=== PATIENT | female | born 1940 | race Caucasian/White ===

== ENCOUNTER 2018-09-23 19:32 | Inpatient (IN) | payer MEDICARE, OTHER ==
[2018-09-23 19:43] LABS: ADD MAN DIFF? NO
[2018-09-23 19:49] LABS: BASOPHILS % 0.2 % (0.0-2.0); EOSINOPHILS # 0.1 10^3/ul (0.0-0.5); EOSINOPHILS % 1.1 % (0.0-7.0); HEMATOCRIT 44.1 % (37.0-47.0); HEMOGLOBIN 14.3 g/dl (12.0-16.0); LYMPHOCYTES # 2.4 10^3/ul (0.8-2.9); LYMPHOCYTES % 25.5 % (15.0-51.0); MEAN CORPUSCULAR HGB CONC 32.4 g/dl (32.0-37.0); MEAN CORPUSCULAR VOLUME 92.6 fl (82.0-101.0); MONOCYTE # 0.5 10^3/ul (0.3-0.9); MONOCYTES % 5.2 % (0.0-11.0); NEUTROPHIL # 6.4 10^3/ul (1.6-7.5); NEUTROPHILS % 67.5 % (39.0-77.0); PLATELET COUNT 223 10^3/UL (140-415); RED BLOOD COUNT 4.76 10^6/ul (4.20-5.40); RED CELL DISTRIBUTION WIDTH 12.4 % (11.5-14.5)
[2018-09-23 19:49] LABS: WHITE BLOOD COUNT 9.4 10^3/ul (4.8-10.8)
[2018-09-23] MEDS: SODIUM CHLORIDE 0.9% 1L BAG IV* (19:56)
[2018-09-23] MEDS: CEFEPIME 2GM/50 ML (PMX) 50 ML IVPB (19:57)
[2018-09-23] MEDS: ALBUTEROL 0.5% (NEB) 2.5 MG/0.5 ML AMP INH (20:09)
[2018-09-23] MEDS: IPRATROPIUM (NEB) 0.5 MG/2.5 ML AMP INH (20:09)
[2018-09-23 20:12] LABS: ALANINE AMINOTRANSFERASE 15 IU/L (13-69); ALBUMIN 3.9 g/dl (3.3-4.9); ALBUMIN/GLOBULIN RATIO 1.11; ALKALINE PHOSPHATASE 62 IU/L (42-121); ANION GAP 9 (5-13); ASPARTATE AMINO TRANSFERASE 18 IU/L (15-46); BILIRUBIN,INDIRECT 0.5 mg/dl (0-1.1); BILIRUBIN,TOTAL 0.5 mg/dl (0.2-1.3); BLOOD UREA NITROGEN 17 mg/dl (7-20); CALCIUM 9.2 mg/dl (8.4-10.2); CARBON DIOXIDE 31 mmol/L (21-31); CHLORIDE 101 mmol/L (97-110); CREATININE 0.19 mg/dl (0.44-1.00); GLUCOSE 130 mg/dl (70-220); INR 1.04; PARTIAL THROMBOPLASTIN TIME 29.4 Sec (23.0-35.0); POTASSIUM 4.8 mmol/L (3.5-5.1); PROTIME 13.7 Sec (11.9-14.9); PT RATIO 1.1; SODIUM 141 mmol/L (135-144); TOTAL PROTEIN 7.4 g/dl (6.1-8.1)
[2018-09-23 20:23] LABS: TROPONIN-I < 0.012 ng/ml (0.000-0.120)
[2018-09-23] MEDS: VANCOMYCIN 1 GM (PMX) 250 ML IVPB (21:15)
[2018-09-23] MEDS: IODIXANOL LOCM 100 ML BTL (21:36)
[2018-09-23 22:45] LABS: D-DIMER 1245.48 ng/ml (<460)
[2018-09-23] MEDS: ENOXAPARIN 80 MG/0.8 ML SYG SC (23:00)
[2018-09-23] MEDS ORDERED: ONDANSETRON 4 MG INJ IV (23:00)
[2018-09-23] MEDS ORDERED: ACETAMINOPHEN 325 MG TAB PO (23:00)
[2018-09-24 00:40] LABS: LACTIC ACID 1.8 mmol/L (0.5-2.0)
[2018-09-24] MEDS ORDERED: ONDANSETRON 4 MG INJ IV (01:00)
[2018-09-24] MEDS ORDERED: IPRATROPIUM (NEB) 0.5 MG/2.5 ML AMP NEB (01:00)
[2018-09-24] MEDS ORDERED: NACL 0.9% 3 ML SYG IV (01:00)
[2018-09-24] MEDS ORDERED: LEVALBUTEROL (NEB) 0.63 MG/3 ML AMP HHN (01:00)
[2018-09-24] MEDS ORDERED: ACETAMINOPHEN 325 MG TAB PO (01:00)
[2018-09-24 01:28] LABS: CREATINE KINASE 30 IU/L (23-200)
[2018-09-24 01:38] LABS: CK INDEX 10.4; CK-MB 3.11 ng/ml (0.0-2.4)
[2018-09-24 01:41] LABS: TROPONIN-I < 0.012 ng/ml (0.000-0.120)
[2018-09-24] MEDS: SOD CHLORIDE 0.9% 100 ML (02:16)
[2018-09-24] MEDS: ACETAMINOPHEN 325 MG TAB PO (02:17)
[2018-09-24] MEDS: GENTAMICIN 0.3% 5 ML OPH BOTH EYES ×6 (02:19→22:33)
[2018-09-24] MEDS: CLINDAMYCIN 900 MG/D5W (PMX) 50 ML IVPB ×2 (02:41→05:13)
[2018-09-24 07:00] LABS: ADD MAN DIFF? NO
[2018-09-24 07:02] LABS: BASOPHILS % 0.3 % (0.0-2.0); EOSINOPHILS # 0.1 10^3/ul (0.0-0.5); EOSINOPHILS % 0.8 % (0.0-7.0); HEMATOCRIT 35.8 % (37.0-47.0); HEMOGLOBIN 11.5 g/dl (12.0-16.0); LYMPHOCYTES # 2.2 10^3/ul (0.8-2.9); LYMPHOCYTES % 23.8 % (15.0-51.0); MEAN CORPUSCULAR HEMOGLOBIN 30.3 pg (29.0-33.0); MEAN CORPUSCULAR HGB CONC 32.1 g/dl (32.0-37.0); MEAN CORPUSCULAR VOLUME 94.5 fl (82.0-101.0); MEAN PLATELET VOLUME 11.4 fl (7.4-10.4); MONOCYTE # 0.8 10^3/ul (0.3-0.9); MONOCYTES % 8.6 % (0.0-11.0); NEUTROPHIL # 6.1 10^3/ul (1.6-7.5); NEUTROPHILS % 66.2 % (39.0-77.0); PLATELET COUNT 154 10^3/UL (140-415); RED BLOOD COUNT 3.79 10^6/ul (4.20-5.40); RED CELL DISTRIBUTION WIDTH 12.7 % (11.5-14.5)
[2018-09-24 07:02] LABS: WHITE BLOOD COUNT 9.2 10^3/ul (4.8-10.8)
[2018-09-24 07:53] LABS: AADO2 Arterial 29.5 mmHg (7.0-24.0); Allen Test ACCEPTAB; Arterial Base Excess 2.7 mmol/L (-3.0-3); Arterial Blood Gas Oxygen Sat 97.1 mmHG (95.0-100.0); Arterial COHb 0.2 % (0.0-3.0); Arterial Fraction of Oxyhgb 96.6 % (93.0-99.0); Arterial HCO3 29.6 mmol/L (22.0-26.0); Arterial MetHb 0.3 % (0.0-1.5); Arterial pCO2 55.7 mmhg (35-45); MODE NASAL CANNULA; Site Left Radial
[2018-09-24] MEDS: POTASSIUM CHLORIDE (SR) 20 MEQ TAB PO (08:08)
[2018-09-24] MEDS: METOPROLOL 25 MG TAB PO (08:08)
[2018-09-24] MEDS: RISPERIDONE 0.25 MG TAB PO ×2 (08:08→22:29)
[2018-09-24] MEDS: CHOLECALCIFEROL 1,000 UNIT TAB PO (08:09)
[2018-09-24] MEDS: HEPARIN 5,000 UNIT/1 ML VIAL SC ×2 (08:13→22:36)
[2018-09-24] MEDS: NALOXONE (0.4 MG/ML) INJ IV (08:54)
[2018-09-24 09:02] LABS: ALANINE AMINOTRANSFERASE 19 IU/L (13-69); ALBUMIN 3.2 g/dl (3.3-4.9); ALBUMIN/GLOBULIN RATIO 1.06; ALKALINE PHOSPHATASE 66 IU/L (42-121); ANION GAP 7 (5-13); ASPARTATE AMINO TRANSFERASE 13 IU/L (15-46); BILIRUBIN,INDIRECT 0.7 mg/dl (0-1.1); BILIRUBIN,TOTAL 0.7 mg/dl (0.2-1.3); BLOOD UREA NITROGEN 10 mg/dl (7-20); CALCIUM 8.4 mg/dl (8.4-10.2); CARBON DIOXIDE 29 mmol/L (21-31); CHLORIDE 106 mmol/L (97-110); CHOL/HDL RATIO 3.8 RATIO; CHOLESTEROL 141 mg/dl (100-200); CREATININE < 0.15 mg/dl (0.44-1.00); GLUCOSE 91 mg/dl (70-220); HDL CHOLESTEROL 37 mg/dl (33-92); LDL CHOLESTEROL,CALCULATED 82 mg/dl; MAGNESIUM 1.8 mg/dl (1.7-2.5); POTASSIUM 3.6 mmol/L (3.5-5.1); SODIUM 142 mmol/L (135-144); TOTAL PROTEIN 6.2 g/dl (6.1-8.1); TRIGLYCERIDES 112 mg/dl (0-149)
[2018-09-24 09:25] LABS: TROPONIN-I < 0.012 ng/ml (0.000-0.120)
[2018-09-24 09:28] LABS: CREATINE KINASE 25 IU/L (23-200)
[2018-09-24] MEDS: traZODone 50 MG TAB PO (22:28)
[2018-09-24] MEDS: ATORVASTATIN 20 MG TAB PO (22:29)
[2018-09-25] MEDS: GENTAMICIN 0.3% 5 ML OPH BOTH EYES ×5 (00:07→17:23)
[2018-09-25 06:53] LABS: ADD MAN DIFF? NO
[2018-09-25 07:01] LABS: BASOPHILS % 0.5 % (0.0-2.0); EOSINOPHILS # 0.1 10^3/ul (0.0-0.5); EOSINOPHILS % 1.6 % (0.0-7.0); HEMATOCRIT 38.4 % (37.0-47.0); HEMOGLOBIN 12.3 g/dl (12.0-16.0); LYMPHOCYTES # 1.3 10^3/ul (0.8-2.9); LYMPHOCYTES % 23.7 % (15.0-51.0); MEAN CORPUSCULAR HEMOGLOBIN 30.3 pg (29.0-33.0); MEAN CORPUSCULAR VOLUME 94.6 fl (82.0-101.0); MEAN PLATELET VOLUME 11.3 fl (7.4-10.4); MONOCYTE # 0.4 10^3/ul (0.3-0.9); MONOCYTES % 7.9 % (0.0-11.0); NEUTROPHIL # 3.7 10^3/ul (1.6-7.5); NEUTROPHILS % 65.9 % (39.0-77.0); PLATELET COUNT 158 10^3/UL (140-415); RED BLOOD COUNT 4.06 10^6/ul (4.20-5.40); RED CELL DISTRIBUTION WIDTH 12.4 % (11.5-14.5)
[2018-09-25 07:01] LABS: WHITE BLOOD COUNT 5.6 10^3/ul (4.8-10.8)
[2018-09-25 07:19] LABS: ANION GAP 5 (5-13); BLOOD UREA NITROGEN 9 mg/dl (7-20); CALCIUM 8.5 mg/dl (8.4-10.2); CARBON DIOXIDE 31 mmol/L (21-31); CHLORIDE 102 mmol/L (97-110); GLUCOSE 74 mg/dl (70-220); MAGNESIUM 1.8 mg/dl (1.7-2.5); PHOSPHORUS 3.9 mg/dl (2.5-4.9); POTASSIUM 3.5 mmol/L (3.5-5.1); SODIUM 138 mmol/L (135-144)
[2018-09-25 07:23] LABS: CREATININE < 0.15 mg/dl (0.44-1.00)
[2018-09-25] MEDS: POTASSIUM CHLORIDE (SR) 20 MEQ TAB PO (08:36)
[2018-09-25] MEDS: METOPROLOL 25 MG TAB PO (08:36)
[2018-09-25] MEDS: RISPERIDONE 0.25 MG TAB PO (08:37)
[2018-09-25] MEDS: CHOLECALCIFEROL 1,000 UNIT TAB PO (08:37)
[2018-09-25] MEDS: HEPARIN 5,000 UNIT/1 ML VIAL SC (08:45)
== END 2018-09-25 18:02 | DRG 189 ==
LOC: TEL 22:48 → E/R 19:32
DX: J96.01 Acute respiratory failure with hypoxia (principal); G82.50 Quadriplegia, unspecified; R65.10 Systemic inflammatory response syndrome (SIRS) of non-infectious origin without acute organ dysfunction; G35 Multiple sclerosis; I10 Essential (primary) hypertension; E78.5 Hyperlipidemia, unspecified; R13.10 Dysphagia, unspecified; F03.90 Unspecified dementia, unspecified severity, without behavioral disturbance, psychotic disturbance, mood disturbance, and anxiety; H54.61 Unqualified visual loss, right eye, normal vision left eye
CPT/HCPCS: 36415; 36600; 71045; 71275; 80048; 80053; 80061; 82550; 82553; 82803; 83605; 83735; 84100; 84484; 85025; 85378; 85610; 85730; 87040; 87081; 87400; 92610; 93005; 93970; 94644; 96365; 96366; 96367; 99285-25